=== PATIENT | female | born 1965 | race Caucasian/White ===

== ENCOUNTER 2024-07-09 08:49 | Day surgery (SDC) | payer OTHER ==
[~2024-07-09] VITALS: Ht 162.6 cm; Wt 73.0 kg
[~2024-07-09 08:49] MED LIST: Dexamethasone Sod Phos 10 MG/ML 1ML VIAL ONE; FentaNYL Citrate 50 MCG/ML 2 ML Injection ONE; Midazolam HCl 1MG / ML 2ML Vial ONE; Ondansetron HCl 2 MG / ML 2ML Vial ONE; Rocuronium Bromide 10 MG/ML 5ML Injection IV ONE; propofoL 40 ML IV ONE
[2024-07-09] MEDS ORDERED: Lactated Ringer's 1,000 ML IV ONE ×4 (08:50→11:25)
[2024-07-09] MEDS ORDERED: CeFAZolin Sodium 2,000 MG VIAL ONE (09:09)
[2024-07-09] MEDS ORDERED: BUPROPION XL150 M1 PO (09:17)
[2024-07-09] MEDS ORDERED: HYDCHL25 PO (09:17)
[2024-07-09] MEDS ORDERED: MOUNJARO15 MG/0.5 (09:18)
[2024-07-09] MEDS ORDERED: Vitamin B Comple1 EA PO (09:19)
[2024-07-09] MEDS ORDERED: THERA-D2000 UNIT PO (09:19)
[2024-07-09] MEDS ORDERED: ASPI81CH PO (09:20)
--- NOTE | 2024-07-09 09:45 | NUR ---
07/09/24 0945 MOISÉS MARCOS RESTING ON GURNEY, CALL LIGHT IN REACH, RAILS UP.
[2024-07-09] MEDS ORDERED: Bupivacaine 0.25% Epi 1:200000 30 ML Vial ONE (09:55)
[2024-07-09] MEDS ORDERED: Scopolamine Hydrobromide Patch ONE (10:08)
[2024-07-09] MEDS ORDERED: EPINEPhrine HCl 1 MG/ML 1ML Amp ONE (10:11)
[2024-07-09] MEDS ORDERED: Bupivacaine 0.5% W/EPI 1:200000 SDV 30 ML Vial ONE (10:17)
[2024-07-09] MEDS ORDERED: Sugammadex Sodium 200 MG/2ML SDV (100 MG/ML) ONE (11:53)
[2024-07-09] MEDS ORDERED: FentaNYL Citrate 50 MCG/ML 2 ML Injection ONE (12:44)
--- NOTE | 2024-07-09 12:55 | NUR ---
07/09/24 [id number] Katherine Beltran RECEIVED REPORT FROM RHIANNA CORREA. PATIENT AWAKE, RATING PAIN 7/10. DENIES NAUSEA. DRY COUGH, REPORTS POST NASAL DRAINAGE
[2024-07-09] MEDS ORDERED: HYDROcodone 5-APAP 325 TAB ONE (13:52)
== END 2024-07-09 14:20 | disposition home or self-care (01) ==
LOC: ORSCSDS 08:49
PROVIDERS: Orthopaedic Surgery
PROC: 0LM14ZZ Reattachment of Right Shoulder Tendon, Percutaneous Endoscopic Approach (ICD-10-PCS; principal; 2024-07-09 10:30)
PROC: 0RNJ4ZZ Release Right Shoulder Joint, Percutaneous Endoscopic Approach (ICD-10-PCS; principal; 2024-07-09 10:30)
DX: M75.111 Incomplete rotator cuff tear or rupture of right shoulder, not specified as traumatic (principal); M75.41 Impingement syndrome of right shoulder; M75.21 Bicipital tendinitis, right shoulder; E78.5 Hyperlipidemia, unspecified; F41.9 Anxiety disorder, unspecified; F32.A Depression, unspecified; Z79.899 Other long term (current) drug therapy; Z79.82 Long term (current) use of aspirin
CPT/HCPCS: A9270; C1713; J0171; J0690; J1100; J2250; J2405; J2704; J3010; J7120